=== PATIENT | male | born 1955 | race Caucasian/White ===

== ENCOUNTER 2019-09-10 21:37 | Inpatient (IN) ==
[2019-09-10 22:39] LABS: BASO# 0.06 X1000 (0.0-0.2); BASO% 0.4 % (0.0-0.8); EOS# 0.11 X1000 (0.0-0.7); EOS% 0.8 % (0.0-10.0); HEMATOCRIT 52.1 % (42.0-52.0); HEMOGLOBIN 18.5 g/dL (14.0-18.0); IMM GRAN# 0.29 X1000 (0.0-0.04); IMM GRAN% 2.1 % (0.0-0.5); LYMPH# 2.02 X1000 (1.2-3.4); LYMPH% 14.7 % (20.5-51.1); MCHC 35.5 g/dL (33-37); MCV 95.8 FL (81-99); MONO% 8.8 % (1.7-9.3); MPV 8.6 FL (7.4-10.4); NEUT# 10.02 X1000 (1.4-6.5); NEUT% 73.2 % (42.2-75.2); PLT 419 X1000 (130-400); RBC 5.44 XMIL (4.7-6.1); RDW 12.5 % (11.5-14.5)
[2019-09-10 22:42] LABS: INR 0.95; PROTIME 12.8 Seconds (11.0-16.0); PTT 29.4 Seconds (22.3-41.8)
--- NOTE | 2019-09-10 23:09 | PROVIDER DOCUMENTATION ---
HPI-General Adult - General Chief Complaint: Return/Recheck Stated Complaint: RECHECK/PNA, BREATHING IS WORSE Time Seen by Provider: 09/10/19 22:38 Source: patient Allergies/Adverse Reactions: Patient Allergies Allergy/AdvReac Type Severity Reaction Status Date / Time codeine Allergy ITCHING Verified 07/31/15 17:36 Home Medications: Home Medication List Medication Instructions Recorded Confirmed Last Taken Type Fluticasone/Salmet 100/50 INH 2 puff INH TID 07/31/15 09/04/19 07/31/15 History [Advair 100/50 Diskus] 1 puff Ipratropium/Albuterol INH 1 puff INH PRN PRN 07/31/15 09/04/19 07/31/15 History [Combivent Respimat Inhaler] 1 puff Losartan [Cozaar] 100 mg PO DAILY 07/31/15 09/04/19 Unknown History Tiotropium [place] Inhaler 1 puff INH RTDAILY #30 inhaler 08/04/15 09/04/19 Unknown Rx [Spiriva] Cilostazol [Pletal] 50 mg PO BID #60 tab 09/09/18 09/04/19 Unknown Rx Pantoprazole Sodium [Protonix] 40 mg PO DAILY #30 tablet. 09/09/18 09/04/19 Unknown Rx Tramadol/APAP [Ultracet 1 ea PO Q6H PRN PRN #45 tab 09/09/18 Unknown Rx 37.5MG/325Mg] Cephalexin [Keflex] 500 mg PO 4XDAY #20 cap 09/04/19 Unknown Rx Chlorthalidone 25 mg PO DAILY 09/04/19 09/04/19 Unknown History Methylprednisolone [Medrol Dosepak] 4 mg PO DIRECTED #1 pkg 09/04/19 Unknown Rx - History of Present Illness -Gen Adult Nature of Presenting Problems: 63yo male presents with CC of cough and shortness of breath. The patient reports that he was seen recently for PNA and discharge on abx, and briefly got better, but now has worsened. The patient reports that the original onset was this past friday. The patient reports that he has felt like his chest was tightening up and he was having difficulty breathing. The patient has had productive cough as well as generalized aches. The patient denies fever. The patient does report feeling like he was going to pass out at times. The patient denies nausea, vomiting or diarrhea. The patient does report daily alcohol use to intoxication as well as smoking. Location of Pain/Injury: reports: none Pain Radiation: reports: no radiation Quality of Pain: reports: none Onset/Duration: reports: 1 week ago Timing: reports: still present, getting worse Associated Symptoms: reports: cough, shortness of breath. denies: fever/chills Review of Systems - Adult - REVIEW OF SYSTEMS - ADULT Constitutional: denies: fever Eyes: reports: no symptoms reported. denies: eye pain Ears, Nose, Mouth & Throat: reports: no symptoms reported. denies: throat pain Cardiovascular: reports: no symptoms reported. denies: chest pain Respiratory: reports: cough, shortness of breath Gastrointestinal: reports: no symptoms reported. denies: abdominal pain, diarrhea, vomiting Genitourinary: reports: no symptoms reported Musculoskeletal: reports: no symptoms reported. denies: back pain Integumentary: reports: no symptoms reported Neurological: reports: no symptoms reported, headache/migraines Psychiatric: reports: no symptoms reported Endocrine: reports: no symptoms reported Hematologic/Lymphatic: reports: no symptoms reported, other (no bleeding) Allergic/Immunologic: reports: no symptoms reported, other (no swelling) Past History - Adult - PAST MEDICAL HISTORY-ADULT Review of Records: reports: Old Records Reviewed Major Childhood Illnesses: reports: denies history Cardiovascular: reports: HTN Respiratory: reports: COPD Gastrointestinal: reports: denies history Obstetrical/Gynecological: reports: denies history Genitourinary: reports: denies history Musculoskeletal: reports: denies history Neurological: reports: denies history Endocrine/Immune: reports: denies history Other Conditions: reports: denies history - PRIOR SURGERIES/PROCEDURES Surgical/Procedure History: reports: reviewed, not pertinent - IMMUNIZATION STATUS Childhood Immunizations: See Nurse Assessment Flu Vaccine: See Nurse Assessment - FAMILY HISTORY Family History: reviewed, not pertinent Physical Exam-General - PHYSICAL EXAM-ADULT Initial Vital Signs Reviewed: Yes - CONSTITUTIONAL General Appearance: alert, no apparent distress - EYES Eyes: negative: conjuctival exudate, photophobia, sclera injected, scleral icterus - HEAD, EARS, NOSE, MOUTH & THROAT HENMT: normocephalic/atraumatic, moist mucous membranes. negative: pharyngeal erythema - NECK Neck: non-tender, supple, other (no mass) - RESPIRATORY Respiratory: respiratory distress (mild), decreased breath sounds (bilaterally), rales (bilaterally), increased rate - CARDIOVASCULAR Cardiovascular: no edema, tachycardia - GASTROINTESTINAL (ABDOMEN) Abdominal Exam: non tender, soft - MUSCULOSKELETAL Extremity: non-tender (LE), no pedal edema - SKIN Integumentary: warm/dry - NEUROLOGIC Neurologic: grossly normal - PSYCHIATRIC Psych/Mental Status: normal mood/affect, normal thought content, normal thought process Progress - PLAN OF CARE/RESULTS Progress/Plan/Lab Results: Vital Signs - 8 hr 09/10/19 21:44 Temperature 97.9 F Pulse Rate 101 H Respiratory Rate 24 Blood Pressure 81/53 O2 Sat by Pulse Oximetry 93 L Laboratory Results - last 24 hr 09/10/19 09/10/19 09/10/19 21:50 21:50 21:50 WBC 13.70 H RBC 5.44 Hgb 18.5 H Hct 52.1 H MCV 95.8 MCH 34.0 H MCHC 35.5 RDW Std Deviation 12.5 Plt Count 419 H MPV 8.6 Immature Gran % (Auto) 2.1 H Neut % (Auto) 73.2 Lymph % (Auto) 14.7 L Garfield % (Auto) 8.8 Eos % (Auto) 0.8 Baso % (Auto) 0.4 Immature Gran # (Auto) 0.29 H Neut # (Auto) 10.02 H Lymph # (Auto) 2.02 Garfield # (Auto) 1.20 H Eos # (Auto) 0.11 Baso # (Auto) 0.06 PT 12.8 INR 0.95 PTT (Actin FS) 29.4 Troponin T 0.016 Orders Category Date Time Status Cardiac Monitoring DIRECTED Care 09/10/19 22:19 Active IV Insertion ORDERED Care 09/10/19 22:19 Completed Notify MD of + Sepsis Screen NOW Care 09/10/19 22:19 Active Notify Physician As Ordered Care 09/10/19 22:19 Active CHEST-1 VIEW [RAD] Stat Exams 09/10/19 22:[address] THORAX W/CONTRAST [CT] Stat Exams 09/10/19 23:06 Ordered BLOOD CULTURE [BLDCUL] Stat Lab 09/10/19 22:54 Ordered CBC WITH DIFF [HEME] Stat Lab 09/10/19 21:50 Completed CK PROFILE [SP CHEM] Stat Lab 09/10/19 21:50 Received COMPREHENSIVE METABOLIC PANEL [CHEM] Stat Lab 09/10/19 21:50 Received LACTATE, PLASMA [CHEM] Lab 09/11/19 01:30 Uncollected LACTATE, PLASMA [CHEM] Lab 09/11/19 04:30 Uncollected LACTATE, PLASMA [CHEM] Q3H Lab 09/10/19 22:54 Ordered PROTIME WITH INR [COAG] Stat Lab 09/10/19 21:50 Completed PTT [COAG] Stat Lab 09/10/19 21:50 Completed TROPONIN T Stat Lab 09/10/19 21:50 Completed URINALYSIS W/POSS RFLX CULT [URINALYSIS] Stat Lab 09/10/19 22:19 Uncollected Oxygen Device Stat Oth 09/10/19 22:19 Active Result Diagrams: 09/10/19 21:50 09/10/19 21:50 - REASSESSMENT Reassessment #1 Time Reassessed: 00:41 Status: other (CT noted to have lower lobe PNA with cavitary lesion. Discussed admission with patient who was agreeable to this. Paged hospitalist team.) Reassessment #2 Time Reassessed: 00:44 Status: other (Discussed case with the hospitalist who has accepted the patient.) Departure - Departure Date of Disposition Decision: 09/11/19 Time of Disposition Decision: 00:44 DIAGNOSIS: Cavitary lesion of lung Pneumonia Qualifiers: Pneumonia type: due to unspecified organism Laterality: unspecified laterality Lung location: lower lobe of lung Qualified Code(s): J18.1 - Lobar pneumonia, unspecified organism Disposition: ADMITTED INPATIENT 09 Certified Medical Emergency: Emergent Condition: Fair Referrals and Follow-Ups: Stephani Stewart MD [Primary Care Provider] - - Critical Care Note This patient required my direct & personal management of CC.: No Attestation - Physician/ NÉSTOR Attestation Patient care was provided by Advanced Practice Provider:: No The physician spent face to face time with patient:: Yes Advanced Practice Provider documentation review:: Supervising physician onsite and consulted in the evaluation and care of this patient. The physician did have a face to face encounter with the patient.
[2019-09-10 23:40] LABS: ALB/GLOB RATIO 1.1; ALBUMIN 3.6 g/dL (3.5-5.0); CALCIUM 10.7 mg/dL (8.8-10.2); CREATININE 1.3 mg/dL (0.7-1.2); POTASSIUM 3.9 mmol/L (3.5-5.1); TOTAL BILIRUBIN 0.63 mg/dL (0.20-1.00)
[2019-09-11 00:02] LABS: URINE SOURCE CLEAN CATCH
[2019-09-11 00:10] LABS: BILIRUBIN URINE NEGATIVE (NEGATIVE); BLOOD URINE NEGATIVE (NEGATIVE); COLOR YELLOW; GLUCOSE URINE NEGATIVE (NEGATIVE); KETONE URINE NEGATIVE (NEGATIVE); LEUKOCYTES URINE NEGATIVE (NEGATIVE); NITRITE URINE NEGATIVE (NEGATIVE); PROTEIN URINE NEGATIVE (NEGATIVE); SP GRAVITY URINE 1.013; TURBIDITY URINE CLEAR (CLEAR); UROBILINOGEN URINE NORMAL (NORMAL)
[2019-09-11 00:33] LABS: UR EPITHELIAL CELLS <10 /HPF (<10); URINE BACTERIA NEGATIVE /HPF; URINE RBC <10 /HPF (<10); URINE WBC <10 /HPF (<10)
[2019-09-11] MEDS ORDERED: ZOSYN 4.5 GM in NS 100 ML IV SCH (00:45)
[2019-09-11 00:48] LABS: URINE CASTS NONE SEEN; URINE CRYSTALS NONE SEEN; URINE SMALL ROUND CELLS NONE SEEN; URINE YEAST NONE SEEN
[2019-09-11] MEDS ORDERED: DUONEB (A & A) INH ONE (01:06)
[2019-09-11] MEDS ORDERED: NICODERM PATCH TD ONE (01:15)
[2019-09-11] MEDS ORDERED: CLINDAMYCIN IV SCH (01:57)
[2019-09-11] MEDS: LEVAQUIN 750 MG/D5W 750 MG/150 ML IVPB IV SCH (01:57)
[2019-09-11] MEDS: NS 1,000 ML IV SCH ×2 (01:57→10:15)
[2019-09-11] MEDS ORDERED: BROVANA NEB INH SCH (01:57)
[2019-09-11] MEDS: LOVENOX SUBQ SCH (01:57)
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
[2019-09-11 02:55] LABS: MAGNESIUM 1.7 mg/dL (1.5-2.7); PHOSPHORUS 3.5 mg/dL (2.7-4.5)
[2019-09-11] MEDS: MUCINEX PO SCH ×3 (03:00→20:34)
[2019-09-11] MEDS: DUONEB (A & A) INH SCH ×4 (03:29→22:09)
[2019-09-11 03:55] LABS: BASO# 0.04 X1000 (0.0-0.2); BASO% 0.3 % (0.0-0.8); EOS# 0.11 X1000 (0.0-0.7); EOS% 0.9 % (0.0-10.0); HEMATOCRIT 49.9 % (42.0-52.0); HEMOGLOBIN 17.6 g/dL (14.0-18.0); IMM GRAN# 0.29 X1000 (0.0-0.04); IMM GRAN% 2.3 % (0.0-0.5); LYMPH% 12.6 % (20.5-51.1); MCH 33.8 PG (27-31); MCHC 35.3 g/dL (33-37); MCV 95.8 FL (81-99); MONO# 1.06 X1000 (0.11-0.59); MONO% 8.4 % (1.7-9.3); MPV 8.5 FL (7.4-10.4); NEUT# 9.59 X1000 (1.4-6.5); NEUT% 75.5 % (42.2-75.2); PLT 342 X1000 (130-400); RBC 5.21 XMIL (4.7-6.1); RDW 12.4 % (11.5-14.5); WBC 12.69 X1000 (4.8-10.8)
[2019-09-11] MEDS ORDERED: CLINDAMYCIN 600 MG/D5W 600 MG/50 ML IVPB IV ONE (04:00)
[2019-09-11 04:15] LABS: AGAP 15; BUN 21 mg/dL (8-22); CALCIUM 9.9 mg/dL (8.8-10.2); CHLORIDE 91 mmol/L (98-107); COSMO 266; CREATININE 1.1 mg/dL (0.7-1.2); ESTIMATED GFR > 60; GLUCOSE 114 mg/dL (70-104); POTASSIUM 2.8 mmol/L (3.5-5.1); SODIUM 131 mmol/L (136-145); TCO2 25 mmol/L (25-35)
[2019-09-11 04:22] LABS: LYMPHS 16 % (21-51); SEGS 80 % (42-75)
--- NOTE | 2019-09-11 07:24 | Diag Imaging Result Doc PS360 ---
EXAM: CHEST-1 VIEW 09/10/2019 HISTORY: PNA TECHNIQUE: AP chest COMMENT: There is pleural fibrosis on the right. Slightly increased interstitial opacity is present in the lung bases which is actually somewhat improved since 09/04/2019. Otherwise are has been no significant change. IMPRESSION: Improved pulmonary edema. Electronically signed by Jam Fox 09/11/2019 7:21 AM
--- NOTE | 2019-09-11 08:01 | Diag Imaging Result Doc PS360 ---
EXAM: CT THORAX W/CONTRAST 09/10/2019 HISTORY: Shortness of breath TECHNIQUE: This exam was performed using automated exposure control, adjustment of mA or kV according to patient size, and/or use of iterative reconstruction technique. COMMENT: There is no evidence of filling defects in the pulmonary arteries. The thoracic aorta is slightly ectatic measuring 4.3 cm in diameter in the ascending aorta. There is no evidence of dissection. There are coronary calcifications. The left ventricle is thickened in appearance. There are no abnormal fluid collections. No significant adenopathy is present. Compared to 07/31/2015 the appearance of the thoracic aorta has not changed significantly. There is COPD. Some of the patchy parenchymal opacities which were present on the previous study particularly in the lower lobes of resolved. There is apparently some which may represent mild pneumonitis and which was not present at the time the previous study. There are pleural changes on the right which were present previously. Tree-in-bud type opacity in the lung bases. There are small cavities demonstrated in the right lower lobe around image 88. This was not evident at the time the previous study. There is a 17 mm densely calcified gallstone in the gallbladder. This was present on the previous study. IMPRESSION: Emphysema with exacerbation by mild pneumonitis/pneumonia. Stable ectasia of the thoracic aorta. Cholelithiasis. Electronically signed by Jam Fox 09/11/2019 7:59 AM
[2019-09-11] MEDS ORDERED: MYCOSTATIN SUSP PO SCH (09:00)
[2019-09-11] MEDS: THIAMINE 100 MG in NS 50 ML IV SCH (09:49)
[2019-09-11] MEDS: BROVANA NEB INH SCH ×2 (10:04→22:12)
[2019-09-11] MEDS: ASPIRIN PO SCH (10:15)
[2019-09-11] MEDS: THERA M PLUS PO SCH ×2 (11:17→20:34)
[2019-09-11] MEDS: CLINDAMYCIN 600 MG/D5W 600 MG/50 ML IVPB IV SCH ×2 (13:15→20:34)
--- NOTE | 2019-09-11 20:46 | PROGRESS NOTE ---
DATE: 09/11/2019 SUBJECTIVE: The patient says he is feeling much better now. He was having trouble breathing when he first came in. He had cough and shortness of breath. He had been treated as an outpatient initially for pneumonia and was on antibiotics but it has gotten worse and he came in with tightening of the chest and difficulty breathing. He also came in with hypotension with a blood pressure of 81/53. Pulse 101, temp 97.9 degrees Fahrenheit. White count 13,700. Sodium was a little low at 127, chloride a little low at 90, creatinine a little up at 1.3. BUN 19. Potassium was normal. OBJECTIVE: Vital Signs: Blood pressure 120/76 now, respirations 22, pulse 77, temperature 97.6 degrees Fahrenheit. HEENT: Normocephalic. EOMs intact. PERRLA. Throat clear. Lungs: Sound fairly clear to auscultation at this time. Hopefully the breathing treatments have helped. CT scan showed a diffuse ground glass pattern consistent with some pneumonia. Heart: Regular rate and rhythm without murmurs, gallops, friction rubs. Abdomen: Soft. Active bowel sounds. No organomegaly or tenderness. Neurological: Intact grossly. ASSESSMENT: 1. Pneumonia, possible aspiration. 2. Possible alcoholism. 3. Chronic obstructive pulmonary disease. PLAN: We will treat pneumonia with IV antibiotics. Anaerobes covered. Will watch for DTs and he has been given Ativan IV p.r.n. DTs. Have strongly encouraged him to quit smoking. He needs to quit drinking as well. We will continue support. cc: MD Ryan Pugh Jr, MD
[2019-09-11] MEDS ORDERED: BROVANA NEB ONE (22:21)
[2019-09-12] MEDS: LOVENOX SUBQ SCH (01:43)
[2019-09-12] MEDS: LEVAQUIN 750 MG/D5W 750 MG/150 ML IVPB IV SCH (01:43)
[2019-09-12] MEDS: DUONEB (A & A) INH SCH ×4 (03:31→22:55)
[2019-09-12] MEDS: CLINDAMYCIN 600 MG/D5W 600 MG/50 ML IVPB IV SCH ×3 (03:46→20:32)
[2019-09-12] MEDS: TYLENOL PO PRN (05:02)
[2019-09-12] MEDS: PROTONIX PO SCH (05:59)
--- NOTE | 2019-09-12 07:22 | Diag Imaging Result Doc PS360 ---
EXAM: CHEST-PORTABLE 09/12/2019 HISTORY: pneumonia TECHNIQUE: AP portable at 0522 COMMENT: There is tenting of the right hemidiaphragm laterally presumably due to fibrosis. The heart size and pulmonary vascularity are within normal limits. There is some increased opacity over the right lower lobe which is slightly worse than on 09/10/2019. It is unchanged in appearance however compared to 09/04/2019. Most likely the differences are due to technique. IMPRESSION: Pulmonary and pleural fibrosis. Electronically signed by Jam Fox 09/12/2019 7:20 AM
[2019-09-12] MEDS: BROVANA NEB INH SCH ×2 (08:03→23:30)
[2019-09-12] MEDS: THIAMINE 100 MG in NS 50 ML IV SCH (08:36)
[2019-09-12] MEDS: THERA M PLUS PO SCH ×2 (08:37→20:32)
[2019-09-12] MEDS: ASPIRIN PO SCH (08:37)
[2019-09-12] MEDS: MUCINEX PO SCH ×2 (08:37→20:32)
[2019-09-12] MEDS: NICOTINE GUM BUCCAL PRN ×2 (09:13→21:42)
--- NOTE | 2019-09-12 12:46 | PROGRESS NOTE ---
DATE: 09/12/2019 SUBJECTIVE: The patient says he is feeling better. OBJECTIVE: Blood pressure is 112/84, respirations 20, pulse 66, temperature 98.4 degrees Fahrenheit. Chest x-ray shows pulmonary fibrosis and opacity over the right lower lobe consistent with pneumonia. White count is down to 12,690, hemoglobin 17.6, hematocrit 49.9. Potassium is low at 2.8, sodium 131 which is improved from 127. The potassium came down from 3.9 to 2.8. Urinalysis was essentially normal. Plasma lactate was 2.3. Blood cultures are no growth after 48 hours. HEENT: Normocephalic. EOMs intact. PERRLA. Throat clear. Lungs have a few rales in the bases bilaterally. Heart: Regular rate and rhythm without murmurs, gallops, or friction rubs. Abdomen: Soft. Active bowel sounds. No organomegaly or tenderness. Neurological: Examination intact grossly. ASSESSMENT: 1. Pneumonia, right lower lobe, possible aspiration. 2. Possible alcoholism. 3. Chronic obstructive pulmonary disease. PLAN: We will continue treatment. He seems to be getting better with this. We will replace potassium. cc: MD Ryan Pugh Jr, MD
[2019-09-12] MEDS: KLOR-CON PO SCH ×2 (13:00→20:32)
[2019-09-12] MEDS: ATIVAN IV PRN ×2 (14:03→23:25)
[2019-09-12] MEDS ORDERED: BROVANA NEB ONE (23:52)
[2019-09-13] MEDS: LEVAQUIN 750 MG/D5W 750 MG/150 ML IVPB IV SCH (01:08)
[2019-09-13] MEDS: LOVENOX SUBQ SCH (01:08)
[2019-09-13] MEDS: ATIVAN IV PRN ×4 (03:19→19:50)
[2019-09-13] MEDS: CLINDAMYCIN 600 MG/D5W 600 MG/50 ML IVPB IV SCH ×3 (03:20→19:47)
[2019-09-13] MEDS: DUONEB (A & A) INH SCH ×4 (03:35→23:27)
[2019-09-13 05:01] LABS: BASO# 0.05 X1000 (0.0-0.2); BASO% 0.6 % (0.0-0.8); EOS# 0.15 X1000 (0.0-0.7); EOS% 1.7 % (0.0-10.0); HEMATOCRIT 44.5 % (42.0-52.0); HEMOGLOBIN 15.4 g/dL (14.0-18.0); IMM GRAN# 0.16 X1000 (0.0-0.04); IMM GRAN% 1.8 % (0.0-0.5); LYMPH# 1.54 X1000 (1.2-3.4); LYMPH% 17.1 % (20.5-51.1); MCH 33.9 PG (27-31); MCHC 34.6 g/dL (33-37); MONO# 0.69 X1000 (0.11-0.59); MONO% 7.7 % (1.7-9.3); MPV 8.7 FL (7.4-10.4); NEUT# 6.42 X1000 (1.4-6.5); NEUT% 71.1 % (42.2-75.2); PLT 293 X1000 (130-400); RBC 4.54 XMIL (4.7-6.1); RDW 12.3 % (11.5-14.5); WBC 9.01 X1000 (4.8-10.8)
[2019-09-13 05:33] LABS: AGAP 11; BUN 12 mg/dL (8-22); CALCIUM 8.5 mg/dL (8.8-10.2); CHLORIDE 93 mmol/L (98-107); COSMO 259; CREATININE 0.9 mg/dL (0.7-1.2); ESTIMATED GFR > 60; GLUCOSE 144 mg/dL (70-104); POTASSIUM 2.9 mmol/L (3.5-5.1); SODIUM 128 mmol/L (136-145); TCO2 24 mmol/L (25-35)
[2019-09-13] MEDS: PROTONIX PO SCH (06:02)
[2019-09-13] MEDS ORDERED: BROVANA NEB ONE ×2 (07:37)
[2019-09-13] MEDS: BROVANA NEB INH SCH ×2 (07:39→23:26)
[2019-09-13] MEDS ORDERED: M.V.I.-12 10 ML, FOLIC ACID 1 MG, MAGNESIUM SULFATE 1 GM, THIAMINE 100 MG in NS 1,000 ML IV ONE (08:18)
[2019-09-13] MEDS ORDERED: KLOR-CON PO ONE (08:19)
[2019-09-13] MEDS ORDERED: MAGNESIUM SULFATE 2 GM/S.W.I. 2 GM/50 ML IVPB IV ONE (08:20)
[2019-09-13] MEDS: MUCINEX PO SCH ×2 (08:30→19:50)
[2019-09-13] MEDS: THERA M PLUS PO SCH ×2 (08:30→19:50)
[2019-09-13] MEDS: ASPIRIN PO SCH (08:31)
[2019-09-13] MEDS: KLOR-CON PO SCH ×2 (08:32→19:51)
[2019-09-13] MEDS: POTASSIUM CHLORIDE 20 MEQ/SWI 20 MEQ/100 ML IVPB IV SCH ×2 (09:05→12:46)
[2019-09-13] MEDS: COZAAR PO SCH (09:18)
[2019-09-13] MEDS: PLETAL PO SCH ×2 (09:19→19:50)
[2019-09-13] MEDS: NICOTINE GUM BUCCAL PRN ×2 (09:45→19:56)
--- NOTE | 2019-09-13 22:11 | PROGRESS NOTE ---
DATE: 09/13/2019 SUBJECTIVE: A 63-year-old white gentleman admitted to the hospital with COPD with aspiration pneumonitis on the right side. He was seen in the ER. Subsequently came to my office. He had abnormal x-ray with elevation of right hemidiaphragm. He is also smoking with blue water and drinking alcohol. The interval history was reviewed. The patient denies of any withdrawal symptoms at this time. He is little bit jittery. No chest pain. PAST MEDICAL HISTORY: Reviewed. PAST SURGICAL HISTORY: Reviewed. MEDICINES: Reviewed. ALLERGIES: Not known. PHYSICAL EXAMINATION: Vital signs: Temperature is 97.9 degrees, pulse 68, blood pressure 112/75, pulse oximetry on room air 99 percent. HEENT exam: Blue boater face. Neck: Supple. Chest: Scattered wheezing. Decreased breath sounds right base. Heart: Sounds are regular. No tachycardia. No tremors noted. Abdomen: Belly is soft, nontender. Neurologic: No obvious deficits. INVESTIGATIONS: CBC: White cell count 9, hematocrit 44, platelets 293,000. Sodium 128, potassium 2.9, BUN 12, creatinine 0.9, glucose 144, calcium 8.5, plasma lactate 2.3. Urinalysis is clear. Plasma alcohol level none detected. Chest x-ray: Elevation of right hemidiaphragm, increased opacity in the right lower lobe. Chest CT: Emphysema with mild pneumonitis, ectasias of thoracic aorta and cholelithiasis. ASSESSMENT AND PLAN: 1. Acute chronic obstructive pulmonary disease exacerbation. 2. Aspiration pneumonia. 3. Hyponatremia. 4. Hypokalemia. 5. Gallstones. 6. Chronic tobacco abuse. 7. History of alcohol abuse. 8. History of perforated duodenal ulcer status post Shahzad patch. PLAN OF CARE: 1. Nicotrol patches. Ativan as needed for delirium tremens. 2. Banana bag. 3. Continue thiamine and folic acid. Replace the magnesium. Continue Protonix. 4. Magnesium sulfate was given. Currently, patient is getting clindamycin and Levaquin, bronchodilators. 5. Patient was seen in my office with hypercalcemia. PTH is normal. Follow up calcium came back normal. 6. Repeat the labs in the morning. 7. Initiate vaccination protocol prior to the discharge, which including influenza and pneumococcal 23. He was given PCV 13 on 09/09/2018. 8. Continue on Protonix. LEVEL OF DOCUMENTATION: 35 minutes. cc: Ryan Stewart MD [facility]ITALDoroteo
[2019-09-14] MEDS: ADVAIR 100/50 DISKUS INH SCH ×3 (00:22→23:46)
[2019-09-14] MEDS: MUCINEX PO SCH ×3 (00:49→20:03)
[2019-09-14] MEDS: THERA M PLUS PO SCH ×3 (00:49→20:03)
[2019-09-14] MEDS: PLETAL PO SCH ×3 (00:49→20:03)
[2019-09-14] MEDS: KLOR-CON PO SCH ×3 (00:49→20:03)
[2019-09-14] MEDS: ATIVAN IV PRN ×2 (00:52→07:13)
[2019-09-14] MEDS: LEVAQUIN 750 MG/D5W 750 MG/150 ML IVPB IV SCH (01:04)
[2019-09-14] MEDS: LOVENOX SUBQ SCH (01:04)
[2019-09-14] MEDS: DUONEB (A & A) INH SCH ×4 (03:25→23:45)
[2019-09-14] MEDS: CLINDAMYCIN 600 MG/D5W 600 MG/50 ML IVPB IV SCH ×3 (04:56→20:12)
[2019-09-14 06:31] LABS: AGAP 11; BUN 10 mg/dL (8-22); CALCIUM 8.5 mg/dL (8.8-10.2); CHLORIDE 97 mmol/L (98-107); COSMO 266; CREATININE 0.8 mg/dL (0.7-1.2); ESTIMATED GFR > 60; GLUCOSE 105 mg/dL (70-104); SODIUM 133 mmol/L (136-145); TCO2 25 mmol/L (25-35)
[2019-09-14] MEDS: PROTONIX PO SCH (06:57)
[2019-09-14 07:13] LABS: BASO# 0.09 X1000 (0.0-0.2); EOS# 0.17 X1000 (0.0-0.7); EOS% 1.8 % (0.0-10.0); HEMATOCRIT 44.3 % (42.0-52.0); HEMOGLOBIN 15.2 g/dL (14.0-18.0); IMM GRAN# 0.06 X1000 (0.0-0.04); IMM GRAN% 0.6 % (0.0-0.5); LYMPH# 1.21 X1000 (1.2-3.4); LYMPH% 12.9 % (20.5-51.1); MCHC 34.3 g/dL (33-37); MCV 99.1 FL (81-99); MONO# 0.85 X1000 (0.11-0.59); MONO% 9.1 % (1.7-9.3); NEUT# 6.98 X1000 (1.4-6.5); NEUT% 74.6 % (42.2-75.2); PLT 284 X1000 (130-400); RBC 4.47 XMIL (4.7-6.1); RDW 12.5 % (11.5-14.5); WBC 9.36 X1000 (4.8-10.8)
[2019-09-14] MEDS ORDERED: BROVANA NEB ONE ×3 (07:22→19:46)
[2019-09-14] MEDS: COZAAR PO SCH (08:34)
[2019-09-14] MEDS: ASPIRIN PO SCH (08:34)
[2019-09-14] MEDS: LIBRIUM PO SCH ×4 (09:10→15:59)
[2019-09-14] MEDS: BROVANA NEB INH SCH ×2 (09:23→23:46)
[2019-09-14] MEDS: SPIRIVA INH SCH (09:26)
--- NOTE | 2019-09-14 23:51 | PROGRESS NOTE ---
DATE: 09/14/2019 SUBJECTIVE: The patient is going into a little bit of tremors. Nurses noted he has a little bit of DTs. As far as his respiratory symptoms are, better. He has been smoking and drinking. REVIEW OF SYSTEMS: None reported. OBJECTIVE: On exam, temperature is 97.3 degrees, pulse 73, blood pressure is stable. HEENT exam: Cyanosis is better on oxygen. Bilateral air entry decreased. Wheezing. Heart sounds are regular. Belly is soft, nontender. No obvious deficits. LABORATORY DATA: CBC: White cell count 9.3, hematocrit 44.3, platelets 284,000. Sodium 133, potassium 4.0, chloride 97, BUN 10, creatinine 0.8, glucose 105. Urinalysis is clear. Blood cultures were negative. ASSESSMENT AND PLAN: 1. Acute chronic obstructive pulmonary disease exacerbation with bronchitis. Currently on bronchodilators. Clindamycin and Levaquin. 2. Tobacco abuse. Nicotine cessation program. 3. Alcohol abuse, started on Librium for impending delirium tremens. 4. Hyponatremia, hypokalemia, better after banana bag. 5. Deep venous thrombosis prophylaxis with Lovenox. 6. Gastrointestinal prophylaxis with intravenous Protonix. 7. History of perforated ulcer. I explained the side effects. 8. Hypertension, on losartan 100 daily. 9. Hypercalcemia is improving. 10. He was not up-to-date on vaccinations. We will give a flu and pneumonia prior to the discharge. 11. Continue present treatment. Level of documentation is 25 minutes. cc: Ryan Stewart MD
[2019-09-15] MEDS: LIBRIUM PO SCH ×6 (00:35→16:40)
[2019-09-15] MEDS: LOVENOX SUBQ SCH (00:35)
[2019-09-15] MEDS: LEVAQUIN 750 MG/D5W 750 MG/150 ML IVPB IV SCH (00:35)
[2019-09-15] MEDS ORDERED: FLU VACCINE IM ONE (03:12)
[2019-09-15] MEDS: DUONEB (A & A) INH SCH ×4 (03:35→21:36)
[2019-09-15] MEDS: CLINDAMYCIN 600 MG/D5W 600 MG/50 ML IVPB IV SCH ×3 (04:08→20:01)
[2019-09-15] MEDS: PROTONIX PO SCH ×2 (05:24→06:04)
[2019-09-15 06:11] LABS: BASO# 0.06 X1000 (0.0-0.2); BASO% 0.6 % (0.0-0.8); EOS# 0.23 X1000 (0.0-0.7); EOS% 2.5 % (0.0-10.0); HEMATOCRIT 47.4 % (42.0-52.0); HEMOGLOBIN 16.3 g/dL (14.0-18.0); IMM GRAN# 0.06 X1000 (0.0-0.04); IMM GRAN% 0.6 % (0.0-0.5); LYMPH# 1.31 X1000 (1.2-3.4); LYMPH% 14.2 % (20.5-51.1); MCH 34.2 PG (27-31); MCHC 34.4 g/dL (33-37); MCV 99.6 FL (81-99); MONO# 0.76 X1000 (0.11-0.59); MONO% 8.2 % (1.7-9.3); MPV 8.7 FL (7.4-10.4); NEUT# 6.83 X1000 (1.4-6.5); NEUT% 73.9 % (42.2-75.2); PLT 312 X1000 (130-400); RBC 4.76 XMIL (4.7-6.1); RDW 12.5 % (11.5-14.5); WBC 9.25 X1000 (4.8-10.8)
[2019-09-15 07:13] LABS: AGAP 12; BUN 10 mg/dL (8-22); CHLORIDE 93 mmol/L (98-107); COSMO 263; CREATININE 0.9 mg/dL (0.7-1.2); ESTIMATED GFR > 60; GLUCOSE 94 mg/dL (70-104); POTASSIUM 4.2 mmol/L (3.5-5.1); SODIUM 132 mmol/L (136-145); TCO2 27 mmol/L (25-35)
[2019-09-15] MEDS: THERA M PLUS PO SCH ×2 (08:28→20:02)
[2019-09-15] MEDS: COZAAR PO SCH (08:28)
[2019-09-15] MEDS: PLETAL PO SCH ×2 (08:28→20:02)
[2019-09-15] MEDS: NICODERM PATCH TD PRN (08:28)
[2019-09-15] MEDS: KLOR-CON PO SCH ×2 (08:28→20:02)
[2019-09-15] MEDS: ASPIRIN PO SCH (08:28)
[2019-09-15] MEDS: MUCINEX PO SCH ×2 (08:28→20:02)
[2019-09-15] MEDS: SPIRIVA INH SCH (10:30)
[2019-09-15] MEDS: ADVAIR 100/50 DISKUS INH SCH ×2 (10:31→21:41)
[2019-09-15] MEDS: BROVANA NEB INH SCH ×2 (10:31→21:36)
--- NOTE | 2019-09-15 21:36 | PROGRESS NOTE ---
DATE: 09/15/2019 SUBJECTIVE: The patient is doing better, decreased cough and wheezing, and he slowly withdraws, noted as per the nurses. PHYSICAL EXAMINATION: Vital signs: Temperature is 98.8 degrees. Not tachycardic. Blood pressure is stable. HEENT: Within normal limits. Neck: Supple. Chest: Clear to auscultation. Heart: Sounds are regular. Abdomen: Belly is soft and nontender. INVESTIGATIONS: CBC: White cell count 9.2, hematocrit 47, platelets 312,000. Sodium 132, potassium 4.2, chloride 93, BUN 10, creatinine 0.9, glucose 9.0. ASSESSMENT AND PLAN: 1. Chronic obstructive pulmonary disease exacerbation, stable. 2. Impending delirium tremens. Continue on Librium. 3. Peripheral artery disease, on Pletal. 4. Acid reflux disease, on proton pump inhibitor. 5. Deep venous thrombosis and gastrointestinal prophylaxis. Continue present treatment. 6. Will evaluate home oxygen therapy. 7. Initiate vaccination protocol prior to the discharge. LEVEL OF DOCUMENTATION: 25 minutes. cc: Ryan Stewart MD
[2019-09-16] MEDS: LOVENOX SUBQ SCH (01:22)
[2019-09-16] MEDS: LIBRIUM PO SCH ×6 (01:22→16:23)
[2019-09-16] MEDS: LEVAQUIN 750 MG/D5W 750 MG/150 ML IVPB IV SCH (01:22)
[2019-09-16] MEDS: DUONEB (A & A) INH SCH ×4 (03:27→22:15)
[2019-09-16] MEDS: TYLENOL PO PRN ×2 (03:57→22:18)
[2019-09-16] MEDS: CLINDAMYCIN 600 MG/D5W 600 MG/50 ML IVPB IV SCH ×3 (03:57→20:44)
[2019-09-16] MEDS: PROTONIX PO SCH (06:06)
[2019-09-16] MEDS ORDERED: BROVANA NEB ONE ×2 (07:46)
[2019-09-16] MEDS: ADVAIR 100/50 DISKUS INH SCH ×2 (07:54→22:15)
[2019-09-16] MEDS: SPIRIVA INH SCH (07:54)
[2019-09-16] MEDS: BROVANA NEB INH SCH ×2 (07:55→22:15)
[2019-09-16] MEDS: THERA M PLUS PO SCH ×2 (08:39→20:44)
[2019-09-16] MEDS: MUCINEX PO SCH ×2 (08:39→20:44)
[2019-09-16] MEDS: KLOR-CON PO SCH ×2 (08:39→20:44)
[2019-09-16] MEDS: ASPIRIN PO SCH (08:39)
[2019-09-16] MEDS: PLETAL PO SCH ×2 (08:39→20:44)
[2019-09-16] MEDS: COZAAR PO SCH (08:39)
[2019-09-16] MEDS: NICODERM PATCH TD PRN (12:10)
--- NOTE | 2019-09-16 21:50 | PROGRESS NOTE ---
DATE: 09/16/2019 SUBJECTIVE: The patient is doing better. No DTs noted. His breathing status is much improved. PHYSICAL EXAMINATION: Vital signs: Temperature is 97 degrees, pulse 73, blood pressure is stable. HEENT: Within normal limits. Neck: Supple. No lymphadenopathy. Chest: Clear. Heart: Sounds are regular. Abdomen: Belly is soft, nontender. LABORATORIES: No labs were obtained. ASSESSMENT AND PLAN: 1. Impending delirium tremens. Stable. I explained the options. Patient wants to go with Antabuse or albuterol injections. 2. Initiate flu and pneumonia prior to discharge. 3. Chronic obstructive pulmonary disease, better. 4. Quit smoking. 5. Acid reflux disease, stable. 6. Deep vein thrombosis and gastrointestinal prophylaxis. 7. We will discharge in the morning if it continues to be better. LEVEL OF DOCUMENTATION: 35 minutes. cc: Ryan Stewart MD
[2019-09-17] MEDS: LIBRIUM PO SCH ×4 (01:28→08:13)
[2019-09-17] MEDS: LOVENOX SUBQ SCH (01:28)
[2019-09-17] MEDS: DUONEB (A & A) INH SCH ×2 (04:26→09:32)
[2019-09-17] MEDS: CLINDAMYCIN 600 MG/D5W 600 MG/50 ML IVPB IV SCH (04:54)
[2019-09-17] MEDS ORDERED: LEVAQUIN PO SCH (06:00)
[2019-09-17] MEDS: PROTONIX PO SCH (06:31)
[2019-09-17] MEDS ORDERED: BROVANA NEB ONE ×2 (07:37)
[2019-09-17 07:38] VITALS: BP 120/86
[2019-09-17] MEDS: SPIRIVA INH SCH (07:40)
[2019-09-17] MEDS: ADVAIR 100/50 DISKUS INH SCH (07:40)
[2019-09-17] MEDS: BROVANA NEB INH SCH (07:41)
[2019-09-17] MEDS: KLOR-CON PO SCH (08:06)
[2019-09-17] MEDS: PLETAL PO SCH (08:06)
[2019-09-17] MEDS: MUCINEX PO SCH (08:06)
[2019-09-17] MEDS: ASPIRIN PO SCH (08:06)
[2019-09-17] MEDS: TYLENOL PO PRN (08:06)
[2019-09-17] MEDS: COZAAR PO SCH (08:06)
[2019-09-17] MEDS: NICODERM PATCH TD PRN (08:06)
[2019-09-17] MEDS: THERA M PLUS PO SCH (08:06)
[2019-09-17] MEDS ORDERED: PREVNAR 13 IM ONE (08:13)
[2019-09-17] MEDS ORDERED: FLU VACCINE IM ONE (09:02)
[2019-09-17] MEDS ORDERED: PNEUMOVAX 23 IM ONE (09:02)
--- NOTE | 2019-09-19 22:13 | DISCHARGE SUMMARY ---
ADMISSION DATE: 09/10/2019 DISCHARGE DATE: 09/17/2019 DISCHARGING DIAGNOSIS: Acute chronic obstructive pulmonary disease exacerbation. SECONDARY DIAGNOSES: 1. Abnormal chest x-ray with elevation of right hemidiaphragm. 2. History of alcohol use, tobacco abuse. 3. History of gallstones . 4. Chronic obstructive pulmonary disease. 5. Hyperlipidemia. 6. Hypertension. 7. History of anterior perforated duodenal ulcer. 8. Peripheral artery disease left leg. 9. Secondary polycythemia due to chronic obstructive pulmonary disease on oxygen. BRIEF HISTORY: Please see the H and P that was done on 09/10/[address] Jones. In brief is a 63-year-old white male with above problems came in with shortness of breath, cough, wheezing, plethoric face with a blue border, hypoxemia. The patient was seen in my office recently after followup in the ER. He also had hypercalcemia with low PTH and that has been resolved. During this hospital course patient was given oxygen, bronchodilators, IV steroids, IV antibiotics. He also had significant hyponatremia, hypokalemia, electrolytes were replaced. He has dependent on alcohol and smoking for which nicotine cessation programs along with a banana bag, Librium was given. I have given the options of Antabuse to detox from alcohol use and he did not have significant seizures or impending DTs. Followup his hospital course was better. LABS: CBC. White cell count 9.2, hematocrit 47.4, platelets 312,000. Sodium 132, potassium 4.2, chloride 93, BUN 10, creatinine 0.9, glucose 94. Urinalysis is clear. Urine tox, plasma alcohol was negative. RADIOLOGY PROCEDURE: Chest x-ray elevation of right hemidiaphragm. Chest CT, emphysema with pneumonitis, ectasia of the thoracic aorta, cholelithiasis. DISCHARGE INSTRUCTIONS: 1. Flu vaccine #1 , pneumococcal 13 vaccine was given 09/17/2018. 2. Nicotrol patches. 3. Quits drinking with Antabuse 250 daily. 4. Oxygen 2 L as needed. 1. Cozaar 100 daily, Combivent 1 puff q.8 as needed, Advair 100/50 one puff p.o. b.i.d., Spiriva 1 puff at bedtime, Protonix 40 mg daily, Pletal 50 p.o. b.i.d., chlorthalidone 25 daily, Nicotrol patches 21 mg daily, Levaquin 500 daily, Medrol Dosepak and follow up in my office in 10 days. cc: Ryan Stewart MD
== END 2019-09-17 10:37 | disposition home or self-care (01) | DRG 191 ==
LOC: ED 21:37 → SUATTDRO 21:38 → EDIPHOLD 21:38 → 2N 09-11 10:27
PROVIDERS: ADMIT Internal Medicine; ATTEND Internal Medicine